=== PATIENT | female | born 1985 | race African-American/Black ===

== ENCOUNTER 2019-03-05 20:55 | Emergency (ER) | payer BC, MEDICAID ==
[~2019-03-05] VITALS: Ht 172.7 cm; Wt 107.0 kg
[2019-03-06] MEDS ORDERED: KETOROLAC 60MG/2ML VIAL IM SCH (02:32)
[2019-03-06 03:32] VITALS: BP 125/16
== END 2019-03-06 03:51 | disposition home or self-care (01) ==
LOC: ER 20:55
DX: S92.341A Displaced fracture of fourth metatarsal bone, right foot, initial encounter for closed fracture (principal); S92.351A Displaced fracture of fifth metatarsal bone, right foot, initial encounter for closed fracture; F17.200 Nicotine dependence, unspecified, uncomplicated; X58.XXXA Exposure to other specified factors, initial encounter; Y93.9 Activity, unspecified; Y92.9 Unspecified place or not applicable; Z88.1 Allergy status to other antibiotic agents; Z88.3 Allergy status to other anti-infective agents; Z86.31 Personal history of diabetic foot ulcer; Z91.040 Latex allergy status
CPT/HCPCS: 29515; 73630; 96372; 99283; J1885; Z7610

== ENCOUNTER 2019-03-30 13:04 | Emergency (ER) | payer MEDICAID ==
[~2019-03-30] VITALS: Ht 170.2 cm; Wt 100.0 kg
[2019-03-30] MEDS ORDERED: SODIUM CHLORIDE 0.9% 1,000 ML IV ONE (15:26)
[2019-03-30 15:30] VITALS: BP 117/93
[2019-03-30 15:50] LABS: BASOPHILS % 0.8 % (0.0-2.0); HEMATOCRIT. 36.5 % (36.0-48.0); LYMPHOCYTES % 17.1 % (20.0-50.0); MEAN CORPUSCULAR HEMOGLOBIN 27.4 pg (28.0-32.0); MEAN CORPUSCULAR VOLUME 83.5 fL (81.0-99.0); MEAN PLATELET VOLUME 8.4 fl (7.4-10.4); MONOCYTES % 5.8 % (2.0-8.0); NEUTROPHILS % 75.3 % (40.0-76.0); PLATELET 301 x1000/uL (130-400); RED BLOOD CELL COUNT 4.37 mill/uL (4.2-5.4); RED CELL DISTRIBUTION WIDTH 15.2 % (11.6-14.6)
[2019-03-30 16:01] LABS: CHLORIDE 110 mEq/L (98-107)
[2019-03-30 16:05] LABS: ETHANOL BLOOD < 10 mg/dL
== END 2019-03-30 16:34 | disposition left against medical advice (07) ==
LOC: ER 13:04
DX: R55 Syncope and collapse (principal); R40.4 Transient alteration of awareness; D72.829 Elevated white blood cell count, unspecified; F17.290 Nicotine dependence, other tobacco product, uncomplicated; Z88.1 Allergy status to other antibiotic agents; Z91.040 Latex allergy status
CPT/HCPCS: 36415; 71045; 80053; 80307; 80320; 80329; 84443; 85025; 93005; 99284; J7030; G0480

== ENCOUNTER 2021-03-23 16:08 | Emergency (ER) | payer BC, MEDICAID ==
[~2021-03-23] VITALS: Ht 172.7 cm; Wt 108.0 kg
[2021-03-23 16:11] VITALS: BP 138/77
[2021-03-23] MEDS ORDERED: CIPR500S3 MT (16:40)
== END 2021-03-23 16:53 | disposition left against medical advice (07) ==
LOC: ER 16:08
DX: N12 Tubulo-interstitial nephritis, not specified as acute or chronic (principal); Z88.1 Allergy status to other antibiotic agents; Z88.3 Allergy status to other anti-infective agents; Z91.040 Latex allergy status
CPT/HCPCS: 99283

== ENCOUNTER 2021-04-01 09:48 | Emergency (ER) | payer MEDICAID ==
[~2021-04-01] VITALS: Ht 172.7 cm; Wt 108.0 kg
[~2021-04-01 09:48] MED LIST: CIPR500S3 MT
[2021-04-01] MEDS ORDERED: TETANUS, DIPHTHERIA, PERTUSSIS VAC/PF 0.5ML (>10YR OLD) IM ONE (10:30)
[2021-04-01] MEDS ORDERED: ACETAMINOPHEN 325MG TABLET PO ONE (10:30)
[2021-04-01 10:33] LABS: BASOPHILS % 0.2 % (0.0-2.0); EOSINOPHILS % 0.8 % (0.0-5.0); HEMATOCRIT. 34.5 % (36.0-48.0); HEMOGLOBIN. 11.1 g/dL (12.0-16.0); LYMPHOCYTES % 12.8 % (20.0-50.0); MEAN CORPUSCULAR HEMOGLOBIN 26.5 pg (28.0-32.0); MEAN CORPUSCULAR VOLUME 82.1 fL (81.0-99.0); MEAN PLATELET VOLUME 8.1 fl (7.4-10.4); NEUTROPHILS % 80.2 % (40.0-76.0); PLATELET 286 x1000/uL (130-400); RED CELL DISTRIBUTION WIDTH 15.1 % (11.6-14.6)
[2021-04-01 10:41] LABS: CHLORIDE 111 mEq/L (98-107)
[2021-04-01 10:44] LABS: HCG SCREEN NEGATIVE
[2021-04-01] MEDS ORDERED: LIDOCAINE HCL/EPINEPHRINE 1%-EPI 1:100,000 50 ML VIAL INFIL ONE (11:45)
[2021-04-01] MEDS ORDERED: POTASSIUM CHLORIDE 20MEQ TABLET SR PO NR (11:45)
[2021-04-01] MEDS ORDERED: LIDOCAINE HCL/EPINEPHRINE 1%-EPI 1:100,000 10 ML VIAL INFIL NR (11:45)
[2021-04-01] MEDS: IBUPROFEN 800MG TABLET PO NR ×2 (11:45→12:16)
[2021-04-01] MEDS ORDERED: KETOROLAC 60MG/2ML VIAL IM ONE (12:30)
[2021-04-01 13:05] VITALS: BP 132/76
== END 2021-04-01 14:20 | disposition home or self-care (01) ==
LOC: ER 09:57
DX: S91.011A Laceration without foreign body, right ankle, initial encounter (principal); R51.9 Headache, unspecified; E87.6 Hypokalemia; D64.9 Anemia, unspecified; Z98.890 Other specified postprocedural states; Z88.1 Allergy status to other antibiotic agents; Z91.040 Latex allergy status; X58.XXXA Exposure to other specified factors, initial encounter; Y93.89 Activity, other specified; Y92.89 Other specified places as the place of occurrence of the external cause; Y99.8 Other external cause status
CPT/HCPCS: 12002; 36415; 70450; 73610; 80053; 84703; 85025; 90471; 90715; 96372; 99285; A4217; J1885; J3490; Z7610

== ENCOUNTER 2025-01-22 22:48 | Emergency (ER) | payer MEDICAID ==
[~2025-01-22] VITALS: Ht 175.3 cm; Wt 124.0 kg
[2025-01-22 22:55] VITALS: O2SAT 97
[2025-01-22 22:57] VITALS: TEMP 36.7; O2SAT 99
[2025-01-22] MEDS ORDERED: KETOROLAC 15MG/ML VIAL IM ONE (23:30)
[2025-01-22 23:50] LABS: CLARITY URINE CLEAR (CLEAR); COLOR URINE YELLOW (YELLOW); GLUCOSE URINE NEGATIVE (NEGATIVE); KETONES URINE NEGATIVE (NEGATIVE); LEUKOCYTE ESTERASE URINE TRACE (NEGATIVE); NITRITE URINE NEGATIVE (NEGATIVE); OCCULT BLOOD URINE NEGATIVE (NEGATIVE); PH URINE 5.5 (4.5-8.0); PROTEIN URINE NEGATIVE (NEGATIVE); SPECIFIC GRAVITY URINE 1.014 (1.005-1.030); UROBILINOGEN URINE 0.2 E.U./dL (0.2-1.0)
[2025-01-23 00:03] VITALS: BP 133/85; PULSE 86; RESP 18
[2025-01-23] MEDS: MORPHINE SULFATE 4 MG/ML INJ (FOR IV/IM USE) IM ONE (00:03)
[2025-01-23 00:47] LABS: SQUAMOUS EPITHELIAL CELL URINE 2+ /lpf (RARE/1+)
[2025-01-23 00:48] LABS: BACTERIA URINE TRACE; RBC URINE NONE SEEN /hpf (0-2)
[2025-01-23] MEDS ORDERED: CEPH500C2 MT (01:03)
[2025-01-23] MEDS ORDERED: NAPR-1176 MT (01:03)
== END 2025-01-23 01:34 | disposition home or self-care (01) ==
LOC: ER 22:48
DX: N39.0 Urinary tract infection, site not specified (principal); F12.90 Cannabis use, unspecified, uncomplicated; Z85.528 Personal history of other malignant neoplasm of kidney; Z79.1 Long term (current) use of non-steroidal anti-inflammatories (NSAID); Z98.890 Other specified postprocedural states; Z91.040 Latex allergy status; Z88.1 Allergy status to other antibiotic agents
CPT/HCPCS: 81003; 81025; 99283; 96372; Z7610 ×2; J2270